=== PATIENT | male | born 1945 | race African-American/Black ===

== ENCOUNTER → 2017-11-03 | Outpatient (CLI) | payer OTHER ==
[2017-11-03] VITALS (7 sets, daily range): BP systolic 127–164; BP diastolic 72–83
[~2017-11-03] VITALS: Ht 172.7 cm; Wt 77.0 kg
== END | disposition home or self-care (01) ==
LOC: IVINF 15:30
DX: D64.9 Anemia, unspecified (principal)
CPT/HCPCS: 36430; 86999; P9016

== ENCOUNTER 2017-11-27 11:27 | Inpatient (IN) | payer OTHER ==
[~2017-11-27] VITALS: Ht 172.7 cm; Wt 87.3 kg
[2017-11-27 13:17] LABS: HEMATOCRIT 29.8 % (38.0-50.0); HEMOGLOBIN 10.2 G/DL (12.5-16.6); MCH 29.8 PG (29.0-34.0); MCHC 34.2 G/DL (30.0-36.0); MCV 87.1 FL (86-99); PLATELET COUNT 103 K/uL (156-360); RBC DIS.WIDTH-CV 17.4 % (11.8-14.6); RBC DIS.WIDTH-SD 55.1 % (39-53); RED BLOOD COUNT 3.42 M/uL (4.00-5.50); WHITE BLOOD COUNT 13.1 K/uL (4.1-10.2)
[2017-11-27 13:26] LABS: CHLORIDE 100 mEq/L (99-109); POTASSIUM 4.4 mEq/L (3.7-5.4); SODIUM 138 mEq/L (136-147)
[2017-11-27 13:27] LABS: GLUCOSE 86 mg/dL (70-99)
[2017-11-27 13:31] LABS: CREATININE 3.3 mg/dL (0.6-1.3); GFR ESTIMATE (CALCULATED) 24 mL/min/ (58.99-99999)
[2017-11-27 13:32] LABS: UREA NITROGEN (BUN) 20 mg/dL (9-23)
[2017-11-27 14:05] LABS: BASOPHIL (%) 0.2 % (0-1); EOSINOPHIL (%) 0.2 % (0-5); IMMATURE GRANULOCYTE (%) 1.4 % (0.0-0.7); LYMPHOCYTE (%) 3.2 % (15-42); LYMPHOCYTE COUNT 0.4 K/uL (1.0-2.8); MONOCYTE (%) 6.5 % (3-12); MONOCYTE COUNT 0.9 K/uL (0-0.8); NEUTROPHIL (%) 88.5 % (45-76); NEUTROPHIL COUNT 11.6 K/uL (1.8-6.4)
[2017-11-27 15:25] LABS: ALBUMIN 2.8 g/dL (3.2-4.8)
[2017-11-27 15:27] LABS: TOTAL PROTEIN 6.6 g/dL (6.4-8.3)
[2017-11-27 15:29] LABS: TOTAL BILIRUBIN 2.4 mg/dL (0.0-1.0)
[2017-11-27 15:30] LABS: ALKALINE PHOSPHATASE 220 IU/L (3-129)
[2017-11-27 15:33] LABS: ALT (GPT) 22 IU/L (3-49); AST (GOT) 53 IU/L (2-34); DIRECT BILIRUBIN 1.7 mg/dL (0.0-0.3)
[2017-11-27] MEDS ORDERED: ALLOPURINOL100 MG PO (16:21)
[2017-11-27] MEDS ORDERED: FOSRENOL1000 MG PO (16:21)
[2017-11-27] MEDS ORDERED: ARTIFICIAL TEAR15 M1 BOTH EYES (16:21)
[2017-11-27] MEDS ORDERED: PRESERVISION A1 EAC2 PO (16:22)
[2017-11-27] MEDS ORDERED: LIDOCAINE-PRIL1 EACH TP (16:22)
[2017-11-27] MEDS ORDERED: NEPHRO-VITE RX1 EACH PO (16:23)
[2017-11-27] MEDS ORDERED: CARVEDILOL25 MG PO (16:23)
[2017-11-27] MEDS ORDERED: VENTOLIN HFA18 GM IH (16:23)
[2017-11-27] MEDS ORDERED: ROBITUSSIN DM118 ML PO (16:24)
[2017-11-27] MEDS ORDERED: CLARITIN,ALAVAR10 MG PO (16:24)
[2017-11-27 19:40] VITALS: BP 95/54
[2017-11-27 23:00] VITALS: BP 126/72
[2017-11-28 04:30] VITALS: BP 107/65
[2017-11-28 05:43] LABS: HEMATOCRIT 25.3 % (38.0-50.0); HEMOGLOBIN 8.5 G/DL (12.5-16.6); MCH 29.6 PG (29.0-34.0); MCHC 33.6 G/DL (30.0-36.0); MCV 88.2 FL (86-99); PLATELET COUNT 76 K/uL (156-360); RBC DIS.WIDTH-CV 17.8 % (11.8-14.6); RBC DIS.WIDTH-SD 56.8 % (39-53); RED BLOOD COUNT 2.87 M/uL (4.00-5.50); WHITE BLOOD COUNT 11.4 K/uL (4.1-10.2)
[2017-11-28 06:21] LABS: CHLORIDE 105 MEQ/L (99-109); CREATININE 3.8 MG/DL (0.6-1.3); GFR ESTIMATE (CALCULATED) 20 mL/min/ (58.99-99999); GLUCOSE 65 mg/dL (70-99); POTASSIUM 3.9 MEQ/L (3.7-5.4); SODIUM 138 MEQ/L (136-147); UREA NITROGEN (BUN) 27 mg/dL (9-23)
[2017-11-28 08:21] VITALS: BP 138/69
[2017-11-28 12:00] VITALS: BP 127/76
[2017-11-28 17:43] VITALS: BP 122/69
[2017-11-28 19:00] VITALS: BP 129/77
[2017-11-28 22:30] VITALS: BP 113/75
[2017-11-29 03:30] VITALS: BP 142/84
[2017-11-29 05:26] LABS: HEMOGLOBIN 9.8 G/DL (12.5-16.6); MCH 29.6 PG (29.0-34.0); MCHC 33.8 G/DL (30.0-36.0); MCV 87.6 FL (86-99); PLATELET COUNT 93 K/uL (156-360); RBC DIS.WIDTH-SD 57.2 % (39-53); RED BLOOD COUNT 3.31 M/uL (4.00-5.50); WHITE BLOOD COUNT 14.3 K/uL (4.1-10.2)
[2017-11-29 05:54] LABS: ALBUMIN 2.3 G/DL (3.2-4.8); ALKALINE PHOSPHATASE 162 IU/L (3-129); ALT (GPT) 12 IU/L (3-49); AST (GOT) 31 IU/L (2-34); CHLORIDE 100 MEQ/L (99-109); CREATININE 5.2 MG/DL (0.6-1.3); GFR ESTIMATE (CALCULATED) 14 mL/min/ (58.99-99999); GLUCOSE 83 mg/dL (70-99); POTASSIUM 5.1 MEQ/L (3.7-5.4); SODIUM 132 MEQ/L (136-147); TOTAL BILIRUBIN 1.2 MG/DL (0.0-1.0); TOTAL PROTEIN 5.4 G/DL (6.4-8.3); UREA NITROGEN (BUN) 43 mg/dL (9-23)
[2017-11-29 08:29] VITALS: BP 154/87
[2017-11-29 12:00] VITALS: BP 170/85
[2017-11-29 17:34] VITALS: BP 162/85
[2017-11-29 19:57] VITALS: BP 105/56
[2017-11-30 04:49] VITALS: BP 115/64
[2017-11-30 05:39] LABS: HEMATOCRIT 29.4 % (38.0-50.0); HEMOGLOBIN 10.2 G/DL (12.5-16.6); MCH 29.3 PG (29.0-34.0); MCHC 34.7 G/DL (30.0-36.0); MCV 84.5 FL (86-99); NRBC (%) 0.3 /100 WBC (0-0); PLATELET COUNT 111 K/uL (156-360); RBC DIS.WIDTH-CV 17.9 % (11.8-14.6); RBC DIS.WIDTH-SD 54.1 % (39-53); RED BLOOD COUNT 3.48 M/uL (4.00-5.50)
[2017-11-30 05:49] LABS: ALBUMIN 2.3 G/DL (3.2-4.8); CHLORIDE 99 MEQ/L (99-109); GFR ESTIMATE (CALCULATED) 12 mL/min/ (58.99-99999); GLUCOSE 76 mg/dL (70-99); PHOSPHORUS 3.4 mg/dL (2.5-4.9); POTASSIUM 4.9 MEQ/L (3.7-5.4); SODIUM 135 MEQ/L (136-147); UREA NITROGEN (BUN) 54 mg/dL (9-23)
[2017-11-30 06:02] LABS: BASOPHIL (%) 0.2 % (0-1); EOSINOPHIL (%) 0.6 % (0-5); EOSINOPHIL COUNT 0.1 K/uL (0-0.3); IMMATURE GRANULOCYTE (%) 1.7 % (0.0-0.7); LYMPHOCYTE (%) 6.6 % (15-42); LYMPHOCYTE COUNT 0.8 K/uL (1.0-2.8); MONOCYTE (%) 6.1 % (3-12); MONOCYTE COUNT 0.7 K/uL (0-0.8); NEUTROPHIL (%) 84.8 % (45-76); NEUTROPHIL COUNT 10.2 K/uL (1.8-6.4); PLAT.SUFFICIENCY DECREASED
[2017-11-30 07:01] VITALS: BP 116/56
[2017-11-30 08:07] LABS: HEMOGLOBIN A1c (GLYCOHEMOGLOB) 4.6 % (Below 5.7)
[2017-11-30 11:18] VITALS: BP 122/64
[2017-11-30 15:02] VITALS: BP 134/68
[2017-11-30 19:38] VITALS: BP 125/64
[2017-11-30 23:25] VITALS: BP 101/64
[2017-12-01 04:05] VITALS: BP 110/65
[2017-12-01 06:43] LABS: BASOPHIL (%) 0.2 % (0-1); EOSINOPHIL (%) 0.7 % (0-5); EOSINOPHIL COUNT 0.1 K/uL (0-0.3); HEMATOCRIT 29.1 % (38.0-50.0); IMMATURE GRANULOCYTE (%) 1.5 % (0.0-0.7); LYMPHOCYTE (%) 5.6 % (15-42); LYMPHOCYTE COUNT 0.7 K/uL (1.0-2.8); MCH 29.1 PG (29.0-34.0); MCHC 34.4 G/DL (30.0-36.0); MCV 84.6 FL (86-99); MONOCYTE (%) 6.1 % (3-12); MONOCYTE COUNT 0.8 K/uL (0-0.8); NEUTROPHIL (%) 85.9 % (45-76); NEUTROPHIL COUNT 11.2 K/uL (1.8-6.4); NRBC (%) 0.4 /100 WBC (0-0); PLATELET COUNT 134 K/uL (156-360); RBC DIS.WIDTH-SD 53.9 % (39-53); RED BLOOD COUNT 3.44 M/uL (4.00-5.50)
[2017-12-01 07:31] LABS: ALBUMIN 2.1 G/DL (3.2-4.8); ALKALINE PHOSPHATASE 135 IU/L (3-129); ALT (GPT) 11 IU/L (3-49); AST (GOT) 21 IU/L (2-34); CHLORIDE 100 MEQ/L (99-109); CREATININE 6.8 MG/DL (0.6-1.3); DIRECT BILIRUBIN 0.5 mg/dL (0.0-0.3); GFR ESTIMATE (CALCULATED) 10 mL/min/ (58.99-99999); GLUCOSE 82 mg/dL (70-99); PHOSPHORUS 4.5 mg/dL (2.5-4.9); POTASSIUM 5.4 MEQ/L (3.7-5.4); SODIUM 133 MEQ/L (136-147); TOTAL BILIRUBIN 1.1 MG/DL (0.0-1.0); TOTAL PROTEIN 5.4 G/DL (6.4-8.3); UREA NITROGEN (BUN) 64 mg/dL (9-23)
[2017-12-01 08:09] VITALS: BP 122/66
[2017-12-01 12:28] VITALS: BP 123/70
[2017-12-01 14:23] VITALS: BP 121/68
[2017-12-01 22:30] VITALS: BP 100/57
[2017-12-02 05:00] VITALS: BP 90/57
[2017-12-02 07:00] VITALS: BP 100/60
[2017-12-02 10:15] LABS: CHLORIDE 100 MEQ/L (99-109); CREATININE 6.2 MG/DL (0.6-1.3); GFR ESTIMATE (CALCULATED) 11 mL/min/ (58.99-99999); GLUCOSE 110 mg/dL (70-99); PHOSPHORUS 4.8 mg/dL (2.5-4.9); POTASSIUM 5.4 MEQ/L (3.7-5.4); SODIUM 134 MEQ/L (136-147); UREA NITROGEN (BUN) 55 mg/dL (9-23)
[2017-12-02 10:54] LABS: HEPATITIS B SURFACE ANTIGEN Nonreactive
[2017-12-02 10:55] LABS: HEPATITIS B SURFACE ANTIBODY REACTIVE
[2017-12-02 11:41] LABS: BASOPHIL (%) 0.1 % (0-1); EOSINOPHIL COUNT 0.1 K/uL (0-0.3); HEMATOCRIT 24.5 % (38.0-50.0); IMMATURE GRANULOCYTE (%) 1.3 % (0.0-0.7); LYMPHOCYTE (%) 5.2 % (15-42); LYMPHOCYTE COUNT 0.6 K/uL (1.0-2.8); MCH 28.6 PG (29.0-34.0); MCHC 32.2 G/DL (30.0-36.0); MONOCYTE (%) 5.7 % (3-12); MONOCYTE COUNT 0.6 K/uL (0-0.8); NEUTROPHIL (%) 86.7 % (45-76); NEUTROPHIL COUNT 9.7 K/uL (1.8-6.4); NRBC (%) 0.2 /100 WBC (0-0); PLATELET COUNT 114 K/uL (156-360); RBC DIS.WIDTH-CV 18.6 % (11.8-14.6); RED BLOOD COUNT 2.76 M/uL (4.00-5.50); WHITE BLOOD COUNT 11.2 K/uL (4.1-10.2)
[2017-12-02 11:44] LABS: HEMOGLOBIN 7.9 G/DL (12.5-16.6); MCV 88.8 FL (86-99)
[2017-12-02 11:50] VITALS: BP 116/62
[2017-12-02 19:01] VITALS: BP 128/71
[2017-12-02 19:19] VITALS: BP 126/73
[2017-12-02 23:42] VITALS: BP 126/67
[2017-12-03 04:14] VITALS: BP 122/70
[2017-12-03 06:24] LABS: BASOPHIL (%) 0.3 % (0-1); EOSINOPHIL (%) 1.4 % (0-5); EOSINOPHIL COUNT 0.1 K/uL (0-0.3); HEMATOCRIT 23.2 % (38.0-50.0); HEMOGLOBIN 7.7 G/DL (12.5-16.6); IMMATURE GRANULOCYTE (%) 1.9 % (0.0-0.7); LYMPHOCYTE (%) 5.7 % (15-42); LYMPHOCYTE COUNT 0.6 K/uL (1.0-2.8); MCH 29.5 PG (29.0-34.0); MCHC 33.2 G/DL (30.0-36.0); MCV 88.9 FL (86-99); MONOCYTE COUNT 0.8 K/uL (0-0.8); NEUTROPHIL (%) 82.7 % (45-76); NEUTROPHIL COUNT 8.2 K/uL (1.8-6.4); PLATELET COUNT 99 K/uL (156-360); RBC DIS.WIDTH-CV 19.6 % (11.8-14.6); RBC DIS.WIDTH-SD 58.1 % (39-53); RED BLOOD COUNT 2.61 M/uL (4.00-5.50); WHITE BLOOD COUNT 9.9 K/uL (4.1-10.2)
[2017-12-03 06:49] LABS: CHLORIDE 101 MEQ/L (99-109); GFR ESTIMATE (CALCULATED) 15 mL/min/ (58.99-99999); GLUCOSE 86 mg/dL (70-99); POTASSIUM 4.8 MEQ/L (3.7-5.4); SODIUM 135 MEQ/L (136-147); UREA NITROGEN (BUN) 38 mg/dL (9-23)
[2017-12-03 07:25] VITALS: BP 120/70
[2017-12-03 11:28] VITALS: BP 124/68
[2017-12-03 17:03] VITALS: BP 138/66
[2017-12-04 00:40] VITALS: BP 154/94
[2017-12-04 07:30] VITALS: BP 136/74
[2017-12-04 13:01] LABS: HEMATOCRIT 24.7 % (38.0-50.0); MCH 28.8 PG (29.0-34.0); MCHC 32.4 G/DL (30.0-36.0); MCV 88.8 FL (86-99); RBC DIS.WIDTH-CV 19.9 % (11.8-14.6); RBC DIS.WIDTH-SD 60.9 % (39-53); RED BLOOD COUNT 2.78 M/uL (4.00-5.50)
[2017-12-04 13:03] LABS: PLATELET COUNT 137 K/uL (156-360)
[2017-12-04 13:17] LABS: ALBUMIN 2.1 G/DL (3.2-4.8); CHLORIDE 100 MEQ/L (99-109); CREATININE 5.9 MG/DL (0.6-1.3); GFR ESTIMATE (CALCULATED) 12 mL/min/ (58.99-99999); GLUCOSE 88 mg/dL (70-99); PHOSPHORUS 4.5 mg/dL (2.5-4.9); POTASSIUM 5.2 MEQ/L (3.7-5.4); SODIUM 132 MEQ/L (136-147); UREA NITROGEN (BUN) 48 mg/dL (9-23)
[2017-12-04 15:30] VITALS: BP 150/77
[2017-12-05 00:02] VITALS: BP 134/69
[2017-12-05 07:20] LABS: HEMATOCRIT 25.3 % (38.0-50.0); HEMOGLOBIN 8.2 G/DL (12.5-16.6); MCH 28.7 PG (29.0-34.0); MCHC 32.4 G/DL (30.0-36.0); MCV 88.5 FL (86-99); PLATELET COUNT 139 K/uL (156-360); RBC DIS.WIDTH-CV 20.2 % (11.8-14.6); RBC DIS.WIDTH-SD 61.2 % (39-53); RED BLOOD COUNT 2.86 M/uL (4.00-5.50); WHITE BLOOD COUNT 8.3 K/uL (4.1-10.2)
[2017-12-05 07:39] LABS: ALKALINE PHOSPHATASE 135 IU/L (3-129); ALT (GPT) 9 IU/L (3-49); CHLORIDE 99 MEQ/L (99-109); GLUCOSE 79 mg/dL (70-99); POTASSIUM 5.2 MEQ/L (3.7-5.4); SODIUM 132 MEQ/L (136-147); TOTAL BILIRUBIN 0.9 MG/DL (0.0-1.0); TOTAL PROTEIN 5.8 G/DL (6.4-8.3); UREA NITROGEN (BUN) 28 mg/dL (9-23)
[2017-12-05 07:43] LABS: AST (GOT) 46 IU/L (2-34); CREATININE 4.5 MG/DL (0.6-1.3); GFR ESTIMATE (CALCULATED) 17 mL/min/ (58.99-99999)
[2017-12-05 08:15] VITALS: BP 158/82
[2017-12-05 09:44] LABS: BASOPHIL (%) 0.4 % (0-1); EOSINOPHIL (%) 0.8 % (0-5); EOSINOPHIL COUNT 0.1 K/uL (0-0.3); IMMATURE GRANULOCYTE (%) 1.4 % (0.0-0.7); LYMPHOCYTE (%) 8.1 % (15-42); LYMPHOCYTE COUNT 0.7 K/uL (1.0-2.8); MONOCYTE (%) 7.5 % (3-12); MONOCYTE COUNT 0.6 K/uL (0-0.8); NEUTROPHIL (%) 81.8 % (45-76); NEUTROPHIL COUNT 6.8 K/uL (1.8-6.4)
[2017-12-05 15:00] VITALS: BP 134/74
[2017-12-05 23:30] VITALS: BP 130/82
[2017-12-06 14:03] VITALS: BP 147/84
[2017-12-06 16:19] VITALS: BP 155/83
[2017-12-06 21:55] VITALS: BP 152/84
[2017-12-06 23:31] VITALS: BP 153/83
[2017-12-07 07:50] VITALS: BP 165/96
[2017-12-07 08:18] LABS: BASOPHIL (%) 0.6 % (0-1); BASOPHIL COUNT 0.1 K/uL (0-0.1); EOSINOPHIL (%) 0.6 % (0-5); EOSINOPHIL COUNT 0.1 K/uL (0-0.3); HEMATOCRIT 25.9 % (38.0-50.0); HEMOGLOBIN 8.2 G/DL (12.5-16.6); IMMATURE GRANULOCYTE (%) 0.6 % (0.0-0.7); LYMPHOCYTE (%) 6.3 % (15-42); LYMPHOCYTE COUNT 0.6 K/uL (1.0-2.8); MCH 28.6 PG (29.0-34.0); MCHC 31.7 G/DL (30.0-36.0); MCV 90.2 FL (86-99); MONOCYTE (%) 6.2 % (3-12); MONOCYTE COUNT 0.6 K/uL (0-0.8); NEUTROPHIL (%) 85.7 % (45-76); NEUTROPHIL COUNT 7.7 K/uL (1.8-6.4); PLATELET COUNT 167 K/uL (156-360); RBC DIS.WIDTH-CV 19.9 % (11.8-14.6); RBC DIS.WIDTH-SD 64.4 % (39-53); RED BLOOD COUNT 2.87 M/uL (4.00-5.50); WHITE BLOOD COUNT 8.9 K/uL (4.1-10.2)
[2017-12-07 08:42] LABS: ALBUMIN 2.3 G/DL (3.2-4.8); CHLORIDE 100 MEQ/L (99-109); GFR ESTIMATE (CALCULATED) 12 mL/min/ (58.99-99999); GLUCOSE 88 mg/dL (70-99); POTASSIUM 5.1 MEQ/L (3.7-5.4); SODIUM 132 MEQ/L (136-147)
[2017-12-07 08:45] LABS: CREATININE 6.1 MG/DL (0.6-1.3); UREA NITROGEN (BUN) 45 mg/dL (9-23)
[2017-12-07 17:02] VITALS: BP 158/77
[2017-12-07 19:28] VITALS: BP 162/85
[2017-12-07 23:26] VITALS: BP 147/85
[2017-12-08 06:21] LABS: BASOPHIL (%) 0.8 % (0-1); BASOPHIL COUNT 0.1 K/uL (0-0.1); EOSINOPHIL (%) 0.5 % (0-5); HEMATOCRIT 25.6 % (38.0-50.0); HEMOGLOBIN 8.2 G/DL (12.5-16.6); IMMATURE GRANULOCYTE (%) 0.7 % (0.0-0.7); LYMPHOCYTE (%) 6.1 % (15-42); LYMPHOCYTE COUNT 0.5 K/uL (1.0-2.8); MCH 28.6 PG (29.0-34.0); MCV 89.2 FL (86-99); MONOCYTE (%) 7.5 % (3-12); MONOCYTE COUNT 0.6 K/uL (0-0.8); NEUTROPHIL (%) 84.4 % (45-76); NEUTROPHIL COUNT 6.3 K/uL (1.8-6.4); PLATELET COUNT 140 K/uL (156-360); RED BLOOD COUNT 2.87 M/uL (4.00-5.50); WHITE BLOOD COUNT 7.5 K/uL (4.1-10.2)
[2017-12-08 06:30] LABS: CHLORIDE 98 MEQ/L (99-109); GFR ESTIMATE (CALCULATED) 16 mL/min/ (58.99-99999); GLUCOSE 71 mg/dL (70-99); POTASSIUM 4.5 MEQ/L (3.7-5.4); SODIUM 132 MEQ/L (136-147); UREA NITROGEN (BUN) 29 mg/dL (9-23)
[2017-12-08 06:32] LABS: CREATININE 4.6 MG/DL (0.6-1.3)
[2017-12-08 08:40] VITALS: BP 143/72
[2017-12-08 15:18] VITALS: BP 161/90
[2017-12-08 16:22] VITALS: BP 154/83
[2017-12-08 21:30] VITALS: BP 156/87
[2017-12-09 00:08] VITALS: BP 167/80
[2017-12-09 07:46] VITALS: BP 162/78
[2017-12-09 10:01] LABS: BASOPHIL (%) 0.6 % (0-1); BASOPHIL COUNT 0.1 K/uL (0-0.1); EOSINOPHIL (%) 0.7 % (0-5); EOSINOPHIL COUNT 0.1 K/uL (0-0.3); HEMATOCRIT 25.5 % (38.0-50.0); HEMOGLOBIN 8.2 G/DL (12.5-16.6); IMMATURE GRANULOCYTE (%) 0.4 % (0.0-0.7); LYMPHOCYTE (%) 6.3 % (15-42); LYMPHOCYTE COUNT 0.5 K/uL (1.0-2.8); MCH 28.9 PG (29.0-34.0); MCHC 32.2 G/DL (30.0-36.0); MCV 89.8 FL (86-99); MONOCYTE (%) 8.1 % (3-12); MONOCYTE COUNT 0.7 K/uL (0-0.8); NEUTROPHIL (%) 83.9 % (45-76); NEUTROPHIL COUNT 6.8 K/uL (1.8-6.4); PLATELET COUNT 147 K/uL (156-360); RBC DIS.WIDTH-CV 19.6 % (11.8-14.6); RBC DIS.WIDTH-SD 63.4 % (39-53); RED BLOOD COUNT 2.84 M/uL (4.00-5.50); WHITE BLOOD COUNT 8.1 K/uL (4.1-10.2)
[2017-12-09 10:17] LABS: ALBUMIN 2.1 G/DL (3.2-4.8); CHLORIDE 100 MEQ/L (99-109); CREATININE 5.3 MG/DL (0.6-1.3); GFR ESTIMATE (CALCULATED) 14 mL/min/ (58.99-99999); PHOSPHORUS 5.7 mg/dL (2.5-4.9); POTASSIUM 4.9 MEQ/L (3.7-5.4); SODIUM 134 MEQ/L (136-147); UREA NITROGEN (BUN) 39 mg/dL (9-23)
[2017-12-09 10:35] LABS: GLUCOSE 105 mg/dL (70-99)
[2017-12-09] MEDS ORDERED: CEFEPIME HCL1 GM IV (13:02)
[2017-12-09] MEDS ORDERED: POLYETHYLENE GL17 GM PO (13:04)
[2017-12-09] MEDS ORDERED: DOCUSATE SODIU100 MG PO (13:04)
[2017-12-09 15:39] VITALS: BP 183/84
== END 2017-12-09 18:01 | DRG 264 ==
LOC: EME 11:27 → 4EAST 14:25 → EDOF 14:25 → 5EAST 14:25 → ENRESERV 14:29 → EDOF 14:30 → ENRESERV 15:27 → EDOF 18:19 → ENRESERV 18:20 → 4EAST 19:28 → ENRESERV 12-02 15:22 → 5EAST 12-02 17:02 → ENPENDDIS 12-09 → 5EAST 12-09 18:01
PROVIDERS: Emergency Medicine; Family Medicine; Hospitalist; Internal Medicine; Internal Medicine Nephrology
DX: T82.7XXA Infection and inflammatory reaction due to other cardiac and vascular devices, implants and grafts, initial encounter (principal); A41.9 Sepsis, unspecified organism; N18.6 End stage renal disease; J18.9 Pneumonia, unspecified organism; R65.20 Severe sepsis without septic shock; E11.9 Type 2 diabetes mellitus without complications; I12.0 Hypertensive chronic kidney disease with stage 5 chronic kidney disease or end stage renal disease; D63.1 Anemia in chronic kidney disease; D69.6 Thrombocytopenia, unspecified; E11.22 Type 2 diabetes mellitus with diabetic chronic kidney disease; M10.9 Gout, unspecified; D69.59 Other secondary thrombocytopenia; Y83.2 Surgical operation with anastomosis, bypass or graft as the cause of abnormal reaction of the patient, or of later complication, without mention of misadventure at the time of the procedure; I13.11 Hypertensive heart and chronic kidney disease without heart failure, with stage 5 chronic kidney disease, or end stage renal disease; Z96.641 Presence of right artificial hip joint; Y83.8 Other surgical procedures as the cause of abnormal reaction of the patient, or of later complication, without mention of misadventure at the time of the procedure; Z88.6 Allergy status to analgesic agent; Z91.09 Other allergy status, other than to drugs and biological substances; Z99.2 Dependence on renal dialysis; Z98.890 Other specified postprocedural states; I51.7 Cardiomegaly; G47.00 Insomnia, unspecified; R18.8 Other ascites; B96.5 Pseudomonas (aeruginosa) (mallei) (pseudomallei) as the cause of diseases classified elsewhere; I87.8 Other specified disorders of veins; E87.70 Fluid overload, unspecified
CPT/HCPCS: 71045; 71046; 73700; 76705; 80048; 80053; 80069; 80076; 80170; 81003; 82948; 83036; 83605; 85025; 85027; 86706; 87040; 87070; 87075; 87077; 87086; 87186; 87205; 87340; 87641; 87801; 93971; 94799; 97530 GP; 99202; 99281; 99285; C1751; C1752; C1769; C1788; C2628; J0360; J0690; J0692; J0881; J1580; J1644; J1815; J2250; J2405; J2997; J3370; J7030; J7040; J7050; S0020

== ENCOUNTER 2017-12-29 09:53 | Observation (INO) | payer OTHER ==
[~2017-12-29] VITALS: Ht 172.7 cm; Wt 68.5 kg
[~2017-12-29 09:53] MED LIST: ALLOPURINOL100 MG PO; ARTIFICIAL TEAR15 M1 BOTH EYES; CARVEDILOL25 MG PO; CEFEPIME HCL1 GM IV; CLARITIN,ALAVAR10 MG PO; DOCUSATE SODIU100 MG PO; FOSRENOL1000 MG PO; LIDOCAINE-PRIL1 EACH TP; NEPHROCAPS SOFTG1 MG PO; POLYETHYLENE GL17 GM PO; PRESERVISION A1 EAC2 PO; ROBITUSSIN DM118 ML PO; VENTOLIN HFA18 GM IH
[2017-12-29 10:30] LABS: BASOPHIL (%) 0.7 % (0-1); BASOPHIL COUNT 0.1 K/uL (0-0.1); EOSINOPHIL (%) 2.8 % (0-5); EOSINOPHIL COUNT 0.2 K/uL (0-0.3); HEMATOCRIT 31.9 % (38.0-50.0); IMMATURE GRANULOCYTE (%) 0.3 % (0.0-0.7); LYMPHOCYTE (%) 9.6 % (15-42); LYMPHOCYTE COUNT 0.7 K/uL (1.0-2.8); MCH 27.3 PG (29.0-34.0); MCV 87.9 FL (86-99); MONOCYTE (%) 8.8 % (3-12); MONOCYTE COUNT 0.6 K/uL (0-0.8); NEUTROPHIL (%) 77.8 % (45-76); NEUTROPHIL COUNT 5.5 K/uL (1.8-6.4); PLATELET COUNT 229 K/uL (156-360); RBC DIS.WIDTH-CV 19.5 % (11.8-14.6); RBC DIS.WIDTH-SD 61.5 % (39-53); WHITE BLOOD COUNT 7.1 K/uL (4.1-10.2)
[2017-12-29 10:45] LABS: CHLORIDE 97 mEq/L (99-109); POTASSIUM 3.2 mEq/L (3.7-5.4); SODIUM 139 mEq/L (136-147)
[2017-12-29 10:46] LABS: GLUCOSE 84 mg/dL (70-99)
[2017-12-29 10:48] LABS: HEMOGLOBIN 9.9 G/DL (12.5-16.6); RED BLOOD COUNT 3.63 M/uL (4.00-5.50)
[2017-12-29 10:50] LABS: CREATININE 5.4 mg/dL (0.6-1.3); GFR ESTIMATE (CALCULATED) 13 mL/min/ (58.99-99999)
[2017-12-29 10:51] LABS: UREA NITROGEN (BUN) 19 mg/dL (9-23)
[2017-12-29 10:55] LABS: TROP-I INTERPRETATION NEGATIVE; TROPONIN-I 0.05 ng/mL (0.0-0.30)
[2017-12-29] MEDS ORDERED: PROBIOTIC1 EAC1 PO (13:35)
[2017-12-29] MEDS ORDERED: TYLENOL EXTRA500 MG PO (13:37)
[2017-12-29 16:20] VITALS: BP 156/91
[2017-12-29 19:49] LABS: TROP-I INTERPRETATION NEGATIVE; TROPONIN-I 0.04 ng/mL (0.0-0.30)
[2017-12-29 20:31] VITALS: BP 148/84
[2017-12-29 23:58] VITALS: BP 151/82
[2017-12-30 00:48] LABS: TROP-I INTERPRETATION NEGATIVE; TROPONIN-I 0.05 ng/mL (0.0-0.30)
[2017-12-30 04:19] VITALS: BP 159/88
[2017-12-30 05:26] LABS: HEMATOCRIT 27.9 % (38.0-50.0); HEMOGLOBIN 8.7 G/DL (12.5-16.6); MCH 27.1 PG (29.0-34.0); MCHC 31.2 G/DL (30.0-36.0); MCV 86.9 FL (86-99); PLATELET COUNT 225 K/uL (156-360); RBC DIS.WIDTH-CV 19.6 % (11.8-14.6); RBC DIS.WIDTH-SD 60.9 % (39-53); RED BLOOD COUNT 3.21 M/uL (4.00-5.50); WHITE BLOOD COUNT 6.9 K/uL (4.1-10.2)
[2017-12-30 05:52] LABS: ALBUMIN 2.4 G/DL (3.2-4.8); ALKALINE PHOSPHATASE 133 IU/L (3-129); ALT (GPT) 5 IU/L (3-49); AST (GOT) 17 IU/L (2-34); CHLORIDE 98 MEQ/L (99-109); CREATININE 5.8 MG/DL (0.6-1.3); GFR ESTIMATE (CALCULATED) 12 mL/min/ (58.99-99999); GLUCOSE 75 mg/dL (70-99); POTASSIUM 3.3 MEQ/L (3.7-5.4); SODIUM 138 MEQ/L (136-147); TOTAL BILIRUBIN 0.6 MG/DL (0.0-1.0); TOTAL PROTEIN 7.4 G/DL (6.4-8.3); UREA NITROGEN (BUN) 24 mg/dL (9-23)
[2017-12-30 09:47] LABS: HEMOGLOBIN A1c (GLYCOHEMOGLOB) 4.4 % (Below 5.7)
[2017-12-30 11:35] VITALS: BP 152/103
== END 2017-12-30 18:51 ==
LOC: EME 09:53 → EDOF 13:31 → 4SOUTH 13:31 → ENRESERV 13:32 → 4SOUTH 16:03
PROVIDERS: Emergency Medicine; Internal Medicine
PROC: 5A1D70Z Performance of Urinary Filtration, Intermittent, Less than 6 Hours Per Day (ICD-10-PCS; principal; 2017-12-30)
DX: E87.70 Fluid overload, unspecified (principal); J96.01 Acute respiratory failure with hypoxia; I13.2 Hypertensive heart and chronic kidney disease with heart failure and with stage 5 chronic kidney disease, or end stage renal disease; I50.9 Heart failure, unspecified; N18.6 End stage renal disease; Z99.2 Dependence on renal dialysis; E11.22 Type 2 diabetes mellitus with diabetic chronic kidney disease; I27.20 Pulmonary hypertension, unspecified; E87.6 Hypokalemia; Z86.19 Personal history of other infectious and parasitic diseases; Z79.4 Long term (current) use of insulin; Z87.891 Personal history of nicotine dependence; Z88.5 Allergy status to narcotic agent; Z88.8 Allergy status to other drugs, medicaments and biological substances
CPT/HCPCS: 71045; 80048; 80053; 82948; 83036; 83605; 84484; 85025; 85027; 87040; 93005; 93306; 99202; 99281; 99284; G0378; J1644; J1815

== ENCOUNTER 2018-01-24 10:30 | Emergency (ER) | payer OTHER ==
[~2018-01-24] VITALS: Ht 172.7 cm; Wt 67.6 kg
[~2018-01-24 10:30] MED LIST changes: +PROBIOTIC1 EAC1 PO; +TYLENOL EXTRA500 MG PO
[2018-01-24 12:36] VITALS: BP 137/87
== END 2018-01-24 12:52 | disposition home or self-care (01) ==
LOC: EME 10:30
DX: S40.022A Contusion of left upper arm, initial encounter (principal); W23.0XXA Caught, crushed, jammed, or pinched between moving objects, initial encounter; Y93.89 Activity, other specified; E11.9 Type 2 diabetes mellitus without complications; N18.9 Chronic kidney disease, unspecified; Z99.2 Dependence on renal dialysis; Z87.891 Personal history of nicotine dependence
CPT/HCPCS: 99281; 99285